=== PATIENT | male | born 1950 | race Caucasian/White ===

== ENCOUNTER 2016-06-24 10:02 | Outpatient (CLI) | payer MEDICARE, OTHER | END 2016-06-24 10:03 | disposition home or self-care (01) | DX: N40.0 Benign prostatic hyperplasia without lower urinary tract symptoms (principal); R03.0 Elevated blood-pressure reading, without diagnosis of hypertension ==

== ENCOUNTER 2016-12-12 11:52 | Outpatient (CLI) | payer MEDICARE, OTHER ==
--- NOTE | 2016-12-13 11:26 | XRAY Report ---
RIGHT HIP AND PELVIS: 12/12/2016 CLINICAL INDICATION: Hip pain. FINDINGS: Frontal view of the hips and pelvis and frogleg lateral view of the right hip demonstrate severe right hip osteoarthritis, with complete collapse of the superior joint space and remodeling of the femoral head. Moderate left hip osteoarthritis is present. There is no evidence of acute fractur e or dislocation. IMPRESSION: SEVERE RIGHT AND MODERATE LEFT HIP OSTEOARTHRITIS. JOB #: [id number] EXT JOB #:[id number]
== END 2016-12-12 11:53 | disposition home or self-care (01) ==
LOC: DI 11:52
PROVIDERS: ATTEND Nurse Practitioner Family
DX: M16.0 Bilateral primary osteoarthritis of hip (principal)

== ENCOUNTER 2017-04-22 18:52 | Outpatient (CLI) | payer MEDICARE, OTHER ==
--- NOTE | 2017-04-22 22:06 | Ultrasound Report ---
EXAM: LEFT LOWER EXTREMITY VENOUS ULTRASOUND EXAM DATE: 04/22/2017 07:37 PM. CLINICAL HISTORY: HEREDITARY Hypercoagulability, left LEG EDEMA/PAIN. COMPARISON: 02/19/2013. TECHNIQUE: Real-time sonographic vascular imaging was performed by the plant breeder through the lower extremity utilizing both color-flow and Doppler spectral analysis. Multiple vaccine customer representative static digna ges were saved for review. FINDINGS: Common Femoral Vein (CFV): Normal. CFV-GSV Junction: Normal. Profunda Femoral Vein (PFV): Normal. Femoral Vein (FV) Prox: Normal. Femoral Vein (FV) Mid: Normal. Femoral Vein (FV) Dist: Normal. Popliteal Vein: Normal. Posterior Tibial Veins: Normal. Peroneal Veins: Normal. Other: None. IMPRESSION: No evidence for left leg deep venous thrombosis. [facility] Referring Provider Line: [phone] SITE ID: [id number]
== END 2017-04-22 18:53 | disposition home or self-care (01) ==
LOC: DI 18:52
PROVIDERS: ATTEND Family Medicine
DX: M79.605 Pain in left leg (principal)

== ENCOUNTER 2017-05-11 19:09 | Emergency (ER) | payer MEDICARE, OTHER ==
[2017-05-11] MEDS ORDERED: COCAINE 4 ML BOTTLE TOP STA (19:22)
--- NOTE | 2017-05-11 19:32 | ED Physician Documentation ---
PD HPI HEENT - Stated complaint Stated Complaint: BLEEDING NOSE - Chief complaint Chief Complaint: Heent - History obtained from History obtained from: Patient - History of Present Illness Timing - onset: Other (He is anticoagulated on warfarin for history of factor V Leiden with history of DVTs with a goal of 2.5-3.3. Last INR earlier this month was 3.2. He saw his ENT, Dr. Eisenberg 5 days ago and was cauterized twice on the left. He started bleeding from the left again tonight.) Review of Systems Constitutional: denies: Fever, Chills Nose: reports: Epistaxis. denies: Rhinorrhea / runny nose, Congestion PD PAST MEDICAL HISTORY - Past Medical History Cardiovascular: High cholesterol, Deep vein thrombosis : Benign prostate hypertrophy HEENT: Macular degeneration - Past Surgical History Past Surgical History: Yes HEENT: Tonsil/Adenoidectomy - Present Medications Home Medications: Ambulatory Orders Medication Instructions Recorded Confirmed Atorvastatin [Lipitor] 20 mg PO DAILY 01/12/14 05/11/17 Losartan [Cozaar] 25 mg PO BID 01/12/14 05/11/17 Warfarin Sodium 5 mg PO DAILY 01/12/14 05/11/17 Doxazosin Mesylate 8 mg PO DAILY 05/11/17 05/11/17 - Allergies Allergies/Adverse Reactions: Allergies Allergy/AdvReac Type Severity Reaction Status Date / Time Sulfa (Sulfonamide AdvReac Intermediate Rash Verified 05/11/17 19:15 Antibiotics) - Social History Does the pt smoke?: No Smoking Status: Never smoker Does the pt drink ETOH?: Yes Does the pt have substance abuse?: No - Immunizations Immunizations are current?: Yes - POLST Patient has POLST: No PD ED PE NORMAL - Vitals Vital signs reviewed: Yes - General General: Alert and oriented X 3, No acute distress - HEENT HEENT: Other (Mild active bleeding high on the left side) - Neck Neck: Supple, no meningeal sign, No bony TTP - Neuro Neuro: Alert and oriented X 3 - Psych Psych: Normal mood, Normal affect Results - Vitals Vitals: Vital Signs - 24 hr 05/11/17 19:13 Temperature 36.3 C L Heart Rate 96 Respiratory 18 Rate Blood Pressure 178/89 H O2 Saturation 93 Oxygen O2 Source Room air - Labs Labs: Laboratory Tests 05/11/17 19:34 Whole Blood INR 2.3 H Procedures - Epistaxis Site: Left, Anterior Preparation: Clots removed, Cocaine, Clamp / pressure applied Treatment: Silver Nitrate Other: Observed - no bleeding Departure - Departure Disposition: 01 Home, Self Care Clinical Impression: Epistaxis, Adequate anticoagulation on anticoagulant therapy Condition: Good Record reviewed to determine appropriate education?: Yes Instructions: Nosebleed Comments: Continue to try to keep your INR on the low end of your therapeutic range. Return if you start bleeding again. Call Dr. Eisenberg's office tomorrow to arrange for follow-up. Your blood pressure was elevated today on check into the emergency department. This does not mean that you have hypertension, it is a common phenomenon to come to the emergency department and have elevated blood pressure. I recommend that you see your primary care physician within the week to have it rechecked when you are feeling better.
[2017-05-11 20:27] VITALS: BP 150/87
== END 2017-05-11 20:26 | disposition home or self-care (01) ==
LOC: ED 19:09
DX: R04.0 Epistaxis (principal); R03.0 Elevated blood-pressure reading, without diagnosis of hypertension; E78.00 Pure hypercholesterolemia, unspecified; D68.51 Activated protein C resistance; Z86.718 Personal history of other venous thrombosis and embolism; Z79.01 Long term (current) use of anticoagulants
CPT/HCPCS: 30901; 85610; 99282; 99283

== ENCOUNTER 2017-05-30 16:39 | Outpatient (CLI) | payer MEDICARE, OTHER ==
--- NOTE | 2017-05-30 17:49 | Ultrasound Report ---
EXAM: LEFT LOWER EXTREMITY VENOUS ULTRASOUND EXAM DATE: 05/30/2017 05:32 PM. CLINICAL HISTORY: Deep venous thrombosis, lower extremity pain COMPARISON: 04/22/2017. TECHNIQUE: Real-time sonographic vascular imaging was performed by the rat exterminator through the lower extremity utilizing both color-flow and Doppler spectral analysis. Multiple underwriting account representative static digna ges were saved for review. FINDINGS: Common Femoral Vein (CFV): Normal. CFV-GSV Junction: Normal. Profunda Femoral Vein (PFV): Normal. Femoral Vein (FV) Prox: Normal. Femoral Vein (FV) Mid: Normal. Femoral Vein (FV) Dist: Normal. Popliteal Vein: Normal. Posterior Tibial Veins: Normal. Peroneal Veins: Normal. Other: None. IMPRESSION: No evidence for deep venous thrombosis. [facility] Referring Provider Line: [phone] SITE ID: [id number]
== END 2017-05-30 16:40 | disposition home or self-care (01) ==
LOC: DI 16:39
PROVIDERS: ATTEND Family Medicine
DX: I82.422 Acute embolism and thrombosis of left iliac vein (principal)

== ENCOUNTER 2017-12-21 10:13 | Emergency (ER) | payer MEDICARE, OTHER ==
[2017-12-21 10:46] LABS: INR 2.9 (0.8-1.2); PT - PROTHROMBIN TIME 31.5 secs (9.9-12.6)
--- NOTE | 2017-12-21 11:09 | ED Physician Documentation ---
History of Present Illness - Stated complaint Stated Complaint: ARM DISCOLORATION/TENDERNESS - Chief complaint Chief Complaint: Ext Problem - History obtained from History obtained from: Patient - History of Present Illness Timing: Yesterday Pain level max: 2 Pain level now: 1 Improved by: nothing Worsened by: nothing - Additonal information Additional information: 67 year old male with Factor V leiden deficiency. States on warfarin since 1994. States bruising to his right forearm since yesterday. Doesn't recall in injury, but was sailing. Review of Systems Constitutional: denies: Fever, Chills Neurologic: denies: Focal weakness, Numbness PD PAST MEDICAL HISTORY - Past Medical History Cardiovascular: High cholesterol, Deep vein thrombosis : Benign prostate hypertrophy HEENT: Macular degeneration Other Past Medical History: pt has a clotting disorder and takes Coumadin for. - Past Surgical History Past Surgical History: Yes HEENT: Tonsil/Adenoidectomy - Present Medications Home Medications: Ambulatory Orders Medication Instructions Recorded Confirmed Atorvastatin [Lipitor] 20 mg PO DAILY 01/12/14 05/11/17 Losartan [Cozaar] 25 mg PO BID 01/12/14 05/11/17 Warfarin Sodium 5 mg PO DAILY 01/12/14 05/11/17 Doxazosin Mesylate 8 mg PO DAILY 05/11/17 05/11/17 - Allergies Allergies/Adverse Reactions: Allergies Allergy/AdvReac Type Severity Reaction Status Date / Time Sulfa (Sulfonamide AdvReac Intermediate Rash Verified 12/21/17 10:18 Antibiotics) - Social History Does the pt smoke?: No Smoking Status: Never smoker Does the pt drink ETOH?: Yes Does the pt have substance abuse?: No - Immunizations Immunizations are current?: Yes - POLST Patient has POLST: No PD ED PE NORMAL - Vitals Vital signs reviewed: Yes - General General: Alert and oriented X 3 - Derm Derm: Warm and dry - Extremities Extremities: Other (Diffuse ecchymosis over the right forearm. Neurovascularly intact. Compartments are soft. Brisk cap refill. No erythema to suggest infection.) - Neuro Neuro: Alert and oriented X 3 - Psych Psych: Normal mood, Normal affect Results - Vitals Vitals: Vital Signs - 24 hr 12/21/17 12/21/17 10:15 11:42 Temperature 36.5 C Heart Rate 95 73 Respiratory 20 16 Rate Blood Pressure 157/87 H 146/88 H O2 Saturation 96 94 Oxygen O2 Source Room air - Labs Labs: Laboratory Tests 12/21/17 10:34 PT 31.5 H INR 2.9 H PD MEDICAL DECISION MAKING - ED course Complexity details: reviewed results, considered differential, d/w patient ED course: Patient is a 59-year-old male who presents to the emergency department with bruising over the right forearm. He is therapeutic on his anticoagulation. No evidence of compartment syndrome. Appears to be a soft tissue contusion, likely injured while sailing. Frantz wrap applied for comfort. Will have him follow-up with his doctor. Patient counseled regarding signs and symptoms for which I believe and urgent re-evaluation would be necessary. Patient with good understanding of and agreement to plan and is comfortable going home at this time This document was made in part using voice recognition software. While efforts are made to proofread this document, sound alike and grammatical errors may occur. - Sepsis Event Vital Signs: Vital Signs - 24 hr 12/21/17 12/21/17 10:15 11:42 Temperature 36.5 C Heart Rate 95 73 Respiratory 20 16 Rate Blood Pressure 157/87 H 146/88 H O2 Saturation 96 94 Oxygen O2 Source Room air Departure - Departure Disposition: 01 Home, Self Care Clinical Impression: Adequate anticoagulation on anticoagulant therapy Contusion Qualifiers: Encounter type: initial encounter Contusion area: forearm Laterality: left Qualified Code(s): S50.12XA - Contusion of left forearm, initial encounter Condition: Good Instructions: ED Contusion Upper Ext Follow-Up: Aureliano Acosta MD [Primary Care Provider] - Within 1 week Comments: Return if you worsen, especially for increased pain or swelling. Keep the FRANTZ wrap on for 1-2 days. Discharge Date/Time: 12/21/17 11:42
[2017-12-21 11:43] VITALS: BP 146/88
== END 2017-12-21 11:42 | disposition home or self-care (01) ==
LOC: ED 10:13
DX: S50.11XA Contusion of right forearm, initial encounter (principal); X58.XXXA Exposure to other specified factors, initial encounter; D68.51 Activated protein C resistance; Z86.718 Personal history of other venous thrombosis and embolism; Z79.01 Long term (current) use of anticoagulants
CPT/HCPCS: 36415; 85610; 99282; 99283

== ENCOUNTER 2017-12-23 07:03 | Emergency (ER) | payer MEDICARE, OTHER ==
--- NOTE | 2017-12-23 09:03 | ED Physician Documentation ---
History of Present Illness - Stated complaint Stated Complaint: RT ARM REDNESS/SWELLING - Chief complaint Chief Complaint: Ext Problem - Additonal information Additional information: hx from pt 67 male factor V Leiden on coumadin after carrying a box the corner of which poked heavily into his R ant FA he has developed bruising and swelling no CP and SOA Review of Systems Constitutional: denies: Fever Cardiac: denies: Chest pain / pressure Respiratory: denies: Dyspnea Musculoskeletal: reports: Extremity swelling PD PAST MEDICAL HISTORY - Past Medical History Past Medical History: Yes Cardiovascular: High cholesterol, Deep vein thrombosis : Benign prostate hypertrophy HEENT: Macular degeneration - Past Surgical History Past Surgical History: Yes HEENT: Tonsil/Adenoidectomy - Present Medications Home Medications: Ambulatory Orders Medication Instructions Recorded Confirmed Atorvastatin [Lipitor] 20 mg PO DAILY 01/12/14 05/11/17 Losartan [Cozaar] 25 mg PO BID 01/12/14 05/11/17 Warfarin Sodium 5 mg PO DAILY 01/12/14 05/11/17 Doxazosin Mesylate 8 mg PO DAILY 05/11/17 05/11/17 - Allergies Allergies/Adverse Reactions: Allergies Allergy/AdvReac Type Severity Reaction Status Date / Time Sulfa (Sulfonamide AdvReac Intermediate Rash Verified 12/23/17 07:16 Antibiotics) - Social History Does the pt smoke?: No Smoking Status: Never smoker Does the pt drink ETOH?: Yes Does the pt have substance abuse?: No - Immunizations Immunizations are current?: Yes - POLST Patient has POLST: No PD ED PE NORMAL - Vitals Vital signs reviewed: Yes - Neck Neck: Supple, no meningeal sign - Cardiac Cardiac: RRR - Respiratory Respiratory: No respiratory distress, Clear bilaterally - Extremities Extremities: Other (R FA extensive bruised and swollen ant, no warm, no lac, no streaks, cmpt soft, no pain with passive ROM, + pulses and cap refill) Results - Vitals Vitals: Vital Signs - 24 hr 12/23/17 12/23/17 07:12 12:35 Temperature 36.3 C L Heart Rate 86 65 Respiratory 14 14 Rate Blood Pressure 141/83 H 148/80 H O2 Saturation 94 94 Oxygen O2 Source Room air - Labs Labs: Laboratory Tests 12/23/17 08:40 Whole Blood INR 3.3 H - Rads (name of study) duplex L FA Radiology: See rad report PD MEDICAL DECISION MAKING - Sepsis Event Vital Signs: Vital Signs - 24 hr 12/23/17 12/23/17 07:12 12:35 Temperature 36.3 C L Heart Rate 86 65 Respiratory 14 14 Rate Blood Pressure 141/83 H 148/80 H O2 Saturation 94 94 Oxygen O2 Source Room air Departure - Departure Disposition: 01 Home, Self Care Clinical Impression: Hematoma of muscle, Muscle tear Condition: Good Instructions: ED Hematoma Comments: You do not have a blood clot in the veins You do have a muscle tear in the forearm and due to that you have a hematoma in the muscle Recommend you hold your coumadin for two days to allow this to stop bleeding and start to heal. Then may resume as before You do not have compartment syndrome right now - iof the seelling worsens, and the arm is hard to the touch and the pain is very severe or your hand become white blue or numb, come back to the ER
[2017-12-23 12:36] VITALS: BP 148/80
--- NOTE | 2017-12-23 13:01 | Ultrasound Report ---
Procedure Date: 12/23/2017 Accession Number: [id number] / [id number] Procedure: US - Duplex Ext Veins Right CPT Code: FULL RESULT: EXAM: Duplex Ext Veins Right DATE: 12/23/2017 12:16 PM CLINICAL HISTORY: rue swelling and bruising factor V lei den COMPARISON: None. TECHNIQUE: Real-time sonographic vascular imaging was performed by the hvac service manager through the upper extremities utilizing both color-flow and Doppler spectral analysis. Multiple business process representative static images were saved for review. Dedicated grayscale and limited color Doppler musculoskeletal ultrasound of the painful area of the forearm was also performed. FINDINGS: RIGHT: Internal Jugular Vein (IJV): Normal. Subclavian Vein (SCV): Normal. Axillary Vein: Normal. Cephalic Vein (superficial): Normal. Basilic Vein (superficial): Normal. Brachial Vein: Normal. There is a partial tear with intramuscular hematoma and and intramuscular retraction of the torn component with hematoma formation within the adductor compartment of the forearm. IMPRESSION: No DVT. Partial tear of adductor forearm musculature. [facility]
== END 2017-12-23 13:30 | disposition home or self-care (01) ==
LOC: SUPCPDRO 07:03 → ED 07:03
DX: S50.11XA Contusion of right forearm, initial encounter (principal); S56.911A Strain of unspecified muscles, fascia and tendons at forearm level, right arm, initial encounter; X58.XXXA Exposure to other specified factors, initial encounter; Y93.89 Activity, other specified; D68.51 Activated protein C resistance; Z79.01 Long term (current) use of anticoagulants
CPT/HCPCS: 85610; 99283

== ENCOUNTER 2018-02-28 09:02 | Outpatient (CLI) | payer MEDICARE, OTHER | END 2018-02-28 09:03 | disposition home or self-care (01) | LOC: RT 09:02 | PROVIDERS: ATTEND Nurse Practitioner Family | DX: Z01.810 Encounter for preprocedural cardiovascular examination (principal); M16.12 Unilateral primary osteoarthritis, left hip | CPT/HCPCS: 93005 ==